=== PATIENT | male | born 2000 | race Hispanic/Latino ===

== ENCOUNTER 2020-04-02 08:28 | Outpatient (CLI) | payer BC ==
--- NOTE | 2020-04-02 09:21 | ULT ---
EXAM: US Abdominal CLINICAL HISTORY: Chronic irritable bowel syndrome. Changing symptoms in the past 2 weeks. Generalize d abdominal pain.. COMPARISON: None. FINDINGS: Pancreas: Obscured by bowel gas IVC: Poorly visualized due to bowel gas Aorta: Poorly visualized due to bowel gas Liver:Heterogeneous hepatic parenchymal echotexture which limits evaluation for hepatic masses and in trahepatic biliary dilatation. The visualized hepatic margin appears to be normal, without significant nodularity. Right hepatic lobe measures 17.5 cm Gallbladder: No sonographic evidence of cholelithiasis, gallbladder wall thickening or pericolic cyst ic fluid. Huang's sign:Negative CBD: 0.2 cm common bile duct diameter Portal vein: Patent. Appropriate directional flow. Right kidney: Normal cortical echotexture. No hydronephrosis. Right kidney measuring 11.0 x 4.8 x 5. 5 cm in length. Left kidney: Normal cortical echotexture. No hydronephrosis . Left kidney measuring 6.2 x 11.8 x 6.5 cm in length Spleen: Heterogeneous echotexture, measuring 12.8 cm in length IMPRESSION: 1. No sonographic evidence of cholelithiasis or: Status post 2. Heterogeneous liver with upper normal right hepatic lobe size. Findings may be due to hepatic stea tosis or hepatocellular disease. If there is concern for hepatic masses, abdomen MRI can be performed
== END 2020-04-02 08:29 | disposition home or self-care (01) ==
LOC: SCSULT 08:28
PROVIDERS: ATTEND Internal Medicine
DX: K52.9 Noninfective gastroenteritis and colitis, unspecified (principal); R10.84 Generalized abdominal pain; R11.2 Nausea with vomiting, unspecified
CPT/HCPCS: 93975